=== PATIENT | female | born 1975 | race Caucasian/White ===

== ENCOUNTER 2018-10-24 16:15 | Emergency (ER) | payer MEDICAID ==
[~2018-10-24] VITALS: Ht 167.6 cm; Wt 81.6 kg
[~2018-10-24 16:15] MED LIST: ASPI-587 PO; ATEN25TA PO; ATEN50TA PO; CEFD300C16 PO; CPR500T PO; FRS325T PO; GLIP2.5T9 PO; GLMP2T PO; GLMP4T PO; HCT25T PO; HYDR-3455 PO; HYDR1TAB75 PO; IBP800T PO; INSU100V6 SQ; KETO10TA PO; LISI10TA2 PO; METF-380 PO; MULT-608 PO; NITR-65; OMG1KC PO; ONDA8TAB13 PO; ORPH100T PO; PREN1TAB39; SIMV40TA4 PO; SITA100T PO; SULF1TAB38 PO; VITA1CAP59 PO; VNL75T PO
--- NOTE | 2018-10-24 16:28 | ED Integumentary General ---
General Stated Complaint: BACK OF NECK POSS SPIDER BITE/ MRSA BOIL Source: patient Exam Limitations: no limitations History of Present Illness Date Seen by Provider: Oct 24, 2018 Time Seen by Provider: 16:27 Initial Comments To ER with reports of a nodule to the back of her neck. This is been there for about a week, daughter looked at it today and noticed a blackened area in the center, suspect it might be a spider bite or MRSA. She works at a senior care. No drainage, no nausea vomiting fevers chills or systemic symptoms. Timing/Duration: week Severity: moderate Associated Symptoms: denies symptoms Allergies and Home Medications Allergies Coded Allergies: No Known Drug Allergies (Unverified , 12/01/09) Home Medications Aspirin 81 Mg Tablet.dr, 81 MG PO DAILY, (Reported) Atenolol 50 Mg Tablet, 50 MG PO HS, (Reported) Cefdinir 300 Mg Capsule, 300 MG PO BID Prescribed by: PORSHA SALAS on 03/17/15141 Glimepiride 4 Mg Tab, 4 MG PO BID, (Reported) Hydrocodone/Acetaminophen 1 Each Tablet, 1 EACH PO Q4H Prescribed by: SHARONA MARTINEZ MD on 10/22/141630 Insulin Glargine,Hum.rec.anlog 100 Unit/1 Ml Vial, 18 UNIT SQ HS, (Reported) Ketorolac Tromethamine 10 Mg Tablet, 10 MG PO Q6H Prescribed by: SHARONA MARTINEZ MD on 10/22/141630 Lisinopril 10 Mg Tablet, 10 MG PO DAILY, (Reported) Metformin Hcl 1,000 Mg Tablet, 1,000 MG PO BID WITH MEALS, (Reported) Ondansetron 8 Mg Tab.rapdis, 8 MG PO Q6H PRN for NAUSEA Prescribed by: PORSHA SALAS on 03/17/15141 Orphenadrine Citrate 100 Mg Tablet.er, 100 MG PO Q12H Prescribed by: SHARONA MARTINEZ MD on 10/22/14 163 Simvastatin 40 Mg Tablet, 40 MG PO HS, (Reported) Sitagliptin Phosphate 100 Mg Tablet, 100 MG PO DAILY, (Reported) Venlafaxine Hcl 75 Mg Tab, 37.5 MG PO DAILY, (Reported) TAKE 1/2 OF (75MG) TAB IN MORNING Venlafaxine Hcl 75 Mg Tab, 75 MG PO HS, (Reported) Patient Home Medication List Home Medication List Reviewed: Yes Review of Systems Review of Systems Constitutional: see HPI EENTM: see HPI Respiratory: no symptoms reported Cardiovascular: no symptoms reported Genitourinary: no symptoms reported Musculoskeletal: no symptoms reported Skin: no symptoms reported Psychiatric/Neurological: No Symptoms Reported Endocrine: No Symptoms Reported Hematologic/Lymphatic: No Symptoms Reported Past Ugiidqq-Qguumg-Mufxzj Hx Patient Social History Recent Foreign Travel: No Contact w/Someone Who Travel: No Seasonal Allergies Seasonal Allergies: No Past Medical History Reproductive Disorders: No Family Medical History No Pertinent Family Hx Physical Exam Vital Signs Capillary Refill : General Appearance: WD/WN, no apparent distress HEENT: PERRL/EOMI, normal ENT inspection Respiratory: no respiratory distress, no accessory muscle use Neurologic/Psychiatric: alert, normal mood/affect, oriented x 3 Skin: normal color, warm/dry Skin Problem Character: abscess, other (2 cm area of induration and erythema to the back of the neck, midline. No fluctuance, no drainage, there is a 4 mm blackened eschar in the center.) Departure Impression Primary Impression: Abscess Disposition: 01 HOME, SELF-CARE Condition: Stable (ERASED) Departure-Patient Inst. Decision time for Depature: 16:29 Referrals: CHARLY FATIMA DO (PCP/Family) Primary Care Physician Patient Instructions: Skin Abscess Add. Discharge Instructions: 1. Warm compresses to the area 2. Apply the topical antibiotic twice daily for 1 week. Antibiotics twice daily for 1 week. Return to ER for any concerns such as fevers or other systemic symptoms. Follow-up with your doctor this week for recheck. Scripts Mupirocin (Mupirocin) 22 Gm Oint...g. 22 GM TP BID for 7 Days, #1 TUBE Prov: GEGE HARDING APRN 10/24/18 Sulfamethoxazole/Trimethoprim (Bactrim Ds Tablet) 1 Each Tablet 1 EACH PO BID, #14 TAB Prov: GEGE HARDING APRN 10/24/18 GEGE HARDING APRN Oct 24, 2018 16:28
[2018-10-24] MEDS ORDERED: SULF1TAB35 PO (16:30)
[2018-10-24] MEDS ORDERED: MUPI22OI2 TP (16:30)
[2018-10-24 16:44] VITALS: BP 138/87
== END 2018-10-24 16:44 | disposition home or self-care (01) ==
LOC: EDUNIT# 16:15 → ER 16:16
DX: L02.11 Cutaneous abscess of neck (principal); Z79.82 Long term (current) use of aspirin; Z79.84 Long term (current) use of oral hypoglycemic drugs
CPT/HCPCS: 99283

== ENCOUNTER 2018-10-30 20:13 | Emergency (ER) | payer MEDICAID ==
[~2018-10-30] VITALS: Ht 167.6 cm; Wt 77.1 kg
[~2018-10-30 20:13] MED LIST changes: +MUPI22OI2 TP; +SULF1TAB35 PO
--- NOTE | 2018-10-30 20:57 | ED Integumentary General ---
General Chief Complaint: Skin/Wound Problems Stated Complaint: WOUND ON NECK, NAUSEA Nursing Triage Note: Patient ambulatory to ER room 9 with family member with complaint of abscess to posterior neck. Patient states she was seen in ER on Thursday here by Gege Asher HAND STRIPER and placed on Bactrim DS and antibiotic ointment. Patient states today the pain has gotten worse to her abscess and she has had a small amount of drainage present from the abscess. Patient also complains of nausea today. Source: patient Exam Limitations: no limitations History of Present Illness Date Seen by Provider: Oct 30, 2018 Time Seen by Provider: 20:55 Initial Comments Persistent somewhat worsening abscess to the midline posterior neck. She was seen here a few days ago and placed on Bactrim antibiotic ointment. Timing/Duration: week, getting worse Severity: moderate Associated Symptoms: denies symptoms Allergies and Home Medications Allergies Coded Allergies: No Known Drug Allergies (Unverified , 12/01/09) Home Medications Aspirin 81 Mg Tablet.dr, 81 MG PO DAILY, (Reported) Atenolol 50 Mg Tablet, 50 MG PO HS, (Reported) Cefdinir 300 Mg Capsule, 300 MG PO BID Prescribed by: PORSHA SALAS on 03/17/15 0142 Glimepiride 4 Mg Tab, 4 MG PO BID, (Reported) Hydrocodone/Acetaminophen 1 Each Tablet, 1 EACH PO Q4H Prescribed by: SHARONA MARTINEZ MD on 10/22/14 1631 Insulin Glargine,Hum.rec.anlog 100 Unit/1 Ml Vial, 18 UNIT SQ HS, (Reported) Ketorolac Tromethamine 10 Mg Tablet, 10 MG PO Q6H Prescribed by: SHARONA MARTINEZ MD on 10/22/14 1631 Lisinopril 10 Mg Tablet, 10 MG PO DAILY, (Reported) Metformin Hcl 1,000 Mg Tablet, 1,000 MG PO BID WITH MEALS, (Reported) Mupirocin 22 Gm Oint...g., 22 GM TP BID Prescribed by: GEGE ASHER on 10/24/18 1630 Ondansetron 8 Mg Tab.rapdis, 8 MG PO Q6H PRN for NAUSEA Prescribed by: PORSHA SALAS on 03/17/15 014 Orphenadrine Citrate 100 Mg Tablet.er, 100 MG PO Q12H Prescribed by: SHARONA MARTIENZ MD on 10/22/14 1631 Simvastatin 40 Mg Tablet, 40 MG PO HS, (Reported) Sitagliptin Phosphate 100 Mg Tablet, 100 MG PO DAILY, (Reported) Sulfamethoxazole/Trimethoprim 1 Each Tablet, 1 EACH PO BID Prescribed by: GEGE ASHER on 10/24/18 1630 Venlafaxine Hcl 75 Mg Tab, 37.5 MG PO DAILY, (Reported) TAKE 1/2 OF (75MG) TAB IN MORNING Venlafaxine Hcl 75 Mg Tab, 75 MG PO HS, (Reported) Patient Home Medication List Home Medication List Reviewed: Yes Review of Systems Review of Systems Constitutional: see HPI EENTM: see HPI Respiratory: no symptoms reported Cardiovascular: no symptoms reported Genitourinary: no symptoms reported Musculoskeletal: no symptoms reported Skin: see HPI Psychiatric/Neurological: No Symptoms Reported Endocrine: No Symptoms Reported Past Hwglmfj-Earuds-Ttpmng Hx Patient Social History Alcohol Use: Denies Use Recreational Drug Use: No Smoking Status: Never a Smoker 2nd Hand Smoke Exposure: No Recent Foreign Travel: No Contact w/Someone Who Travel: No Recent Infectious Disease Expo: No Recent Hopitalizations: No (only previous childbirth) Physical Abuse: No Sexual Abuse: No Mistreated: No Fear: No Seasonal Allergies Seasonal Allergies: No Past Medical History Surgeries: Yes (D&C) Gallbladder Respiratory: No Cardiac: Yes High Cholesterol, Hypertension Neurological: No Reproductive Disorders: No Genitourinary: No Gastrointestinal: Yes Musculoskeletal: No Endocrine: Yes Diabetes, Insulin dep HEENT: No Cancer: No Psychosocial: Yes Integumentary: No Blood Disorders: No Family Medical History No Pertinent Family Hx Physical Exam Vital Signs Vital Signs - First Documented 10/30/18 20:15 Temp 97.3 Pulse 91 Resp 14 B/P (MAP) 128/95 (106) Pulse Ox 95 O2 Delivery Room Air Capillary Refill : Less Than 3 Seconds General Appearance: WD/WN, no apparent distress HEENT: PERRL/EOMI, normal ENT inspection, other (posterior midline neck is a 2 cm erythematous abscess with a central punctum/eschar. Minimal fluctuance. Superior to this there is some induration with normal-appearing overlying skin consistent with occipital lymphadenopathy.) Respiratory: no respiratory distress, no accessory muscle use Gastrointestinal: normal bowel sounds, non tender Extremities: normal range of motion, non-tender Neurologic/Psychiatric: alert, normal mood/affect, oriented x 3 Skin: normal color, warm/dry Skin Problem Character: abscess Procedures/Interventions I&D : Blade Size: 11 Progress Unable to expel any purulent material Progress/Results/Core Measures Results/Orders My Orders Orders - GEGE ASHER APRN Wound Culture (10/30/18 20:28) Sulfamethoxazole/Trimet Ds Tab (Bactrim (10/30/18 21:00) Vital Signs/I&O 10/30/18 20:15 Temp 97.3 Pulse 91 Resp 14 B/P (MAP) 128/95 (106) Pulse Ox 95 O2 Delivery Room Air Blood Pressure Mean: 106 Departure Impression Primary Impression: Abscess Disposition: 01 HOME, SELF-CARE Condition: Stable Departure-Patient Inst. Decision time for Depature: 20:56 Referrals: CHARLY BOWERS DO (PCP/Family) Primary Care Physician Patient Instructions: Abscess Incision and Drainage (DC) Add. Discharge Instructions: 1. Continue with the oral and topical antibiotics. Warm compresses to the area. Follow-up with Dr. Bowers next week. All discharge instructions reviewed with patient and/or family. Voiced understanding. GEGE ASHER APRN Oct 30, 2018 20:57
[2018-10-30 21:00] VITALS: BP 128/95
[2018-10-30] MEDS ORDERED: TRIM/SULFAMETH 160/800 (SEPTRA DS) TAB PO ONE (21:00)
== END 2018-10-30 21:07 | disposition home or self-care (01) ==
LOC: EDUNIT# 20:13 → ER 20:15
DX: L02.11 Cutaneous abscess of neck (principal); I10 Essential (primary) hypertension; E78.00 Pure hypercholesterolemia, unspecified; E11.9 Type 2 diabetes mellitus without complications; Z79.82 Long term (current) use of aspirin; Z79.84 Long term (current) use of oral hypoglycemic drugs; Z79.4 Long term (current) use of insulin
CPT/HCPCS: 87070; 87077; 87186; 87205; 99282

== ENCOUNTER 2019-01-17 20:07 | Emergency (ER) | payer SELFPAY ==
[~2019-01-17] VITALS: Ht 167.7 cm; Wt 77.0 kg
--- NOTE | 2019-01-17 20:44 | ED Headache ---
General Chief Complaint: Glucose Problems Stated Complaint: HIGH BLOOD SUGAR,MIGRAINE Source: patient, other Exam Limitations: no limitations History of Present Illness Date Seen by Provider: Jan 17, 2019 Time Seen by Provider: 20:29 Initial Comments Patient resists ER by private conveyance with her significant other and chief complaint of headache tonight. She equates this to her blood sugars being elevated. She does not have a history of headaches or migraines. She did not take anything for the headache. She says it is global and there is no photophobia or phonophobia. She has been off her insulin and medicines for the past 6 months. She's been 9 years dependent on insulin for type 2 diabetes. She has an appointment with Dr. Fatima tomorrow. She says she is off her medicines because she does not have insurance. She did talk with the pharmacist however and has some ideas for more affordable insulin. Allergies and Home Medications Allergies Coded Allergies: No Known Drug Allergies (Unverified , 12/01/09) Home Medications Aspirin 81 Mg Tablet.dr, 81 MG PO DAILY, (Reported) Atenolol 50 Mg Tablet, 50 MG PO HS, (Reported) Cefdinir 300 Mg Capsule, 300 MG PO BID Prescribed by: PORSHA SALAS on 03/17/15 014 Glimepiride 4 Mg Tab, 4 MG PO BID, (Reported) Hydrocodone/Acetaminophen 1 Each Tablet, 1 EACH PO Q4H Prescribed by: SHARONA MARTINEZ MD on 10/22/14 163 Insulin Glargine,Hum.rec.anlog 100 Unit/1 Ml Vial, 18 UNIT SQ HS, (Reported) Ketorolac Tromethamine 10 Mg Tablet, 10 MG PO Q6H Prescribed by: SHARONA MARTINEZ MD on 10/22/14 163 Lisinopril 10 Mg Tablet, 10 MG PO DAILY, (Reported) Metformin Hcl 1,000 Mg Tablet, 1,000 MG PO BID WITH MEALS, (Reported) Mupirocin 22 Gm Oint...g., 22 GM TP BID Prescribed by: GEGE HARDING on 10/24/18 1630 Ondansetron 8 Mg Tab.rapdis, 8 MG PO Q6H PRN for NAUSEA Prescribed by: PORSHA SALAS on 03/17/15 014 Orphenadrine Citrate 100 Mg Tablet.er, 100 MG PO Q12H Prescribed by: SHARONA MARTINEZ MD on 10/22/14 1631 Simvastatin 40 Mg Tablet, 40 MG PO HS, (Reported) Sitagliptin Phosphate 100 Mg Tablet, 100 MG PO DAILY, (Reported) Sulfamethoxazole/Trimethoprim 1 Each Tablet, 1 EACH PO BID Prescribed by: GEGE HARDING on 10/24/18 1630 Venlafaxine Hcl 75 Mg Tab, 37.5 MG PO DAILY, (Reported) TAKE 1/2 OF (75MG) TAB IN MORNING Venlafaxine Hcl 75 Mg Tab, 75 MG PO HS, (Reported) Patient Home Medication List Home Medication List Reviewed: Yes Review of Systems Review of Systems Constitutional: No chills, No diaphoresis Eyes: Denies Blindness, Denies Blurred Vision Ears, Nose, Mouth, Throat: denies ear pain, denies ear discharge Respiratory: No cough, No short of breath Cardiovascular: No chest pain, No palpitations Gastrointestinal: No abdominal pain, No nausea, No vomiting Genitourinary: No discharge, No dysuria : No Musculoskeletal: No back pain, No joint pain Skin: No pruritus, No rash All Other Systems Reviewed Negative Unless Noted: Yes Past Kgvfzdd-Kfpszz-Hipfgg Hx Patient Social History 2nd Hand Smoke Exposure: No Recent Foreign Travel: No Contact w/Someone Who Travel: No Recent Hopitalizations: No (only previous childbirth) Seasonal Allergies Seasonal Allergies: No Past Medical History Surgeries: Yes (D&C) Gallbladder Respiratory: No Cardiac: Yes High Cholesterol, Hypertension Neurological: No Reproductive Disorders: No Genitourinary: No Gastrointestinal: Yes Musculoskeletal: No Endocrine: Yes Diabetes, Insulin dep HEENT: No Cancer: No Psychosocial: Yes Integumentary: No Blood Disorders: No Family Medical History No Pertinent Family Hx Physical Exam Vital Signs Vital Signs - First Documented 01/17/19 20:27 Temp 37.0 Pulse 87 Resp 16 B/P (MAP) 147/93 (111) O2 Delivery Room Air Capillary Refill : Height, Weight, BMI Height: 5'6.00" Weight: 170lbs. oz. 77.992393lh; BMI Method:Stated General Appearance: WD/WN, no apparent distress HEENT: PERRL/EOMI, pharynx normal Neck: full range of motion, normal inspection Cardiovascular: normal peripheral pulses, regular rate, rhythm Respiratory: lungs clear, normal breath sounds, no respiratory distress, no accessory muscle use Gastrointestinal: normal bowel sounds, non tender, soft Extremities: non-tender, normal inspection, normal capillary refill Psychiatric: alert, oriented x 3 Crainal Nerves: normal hearing, normal speech, PERRL Skin: normal color, warm/dry Progress/Results/Core Measures Results/Orders Lab Results Laboratory Tests Test 01/17/19 20:30 01/17/19 20:40 01/17/19 20:45 01/17/19 21:24 Range/Units Urine Color YELLOW Urine Clarity CLEAR Urine pH 6.0 5-9 Urine Specific Stephen 1.010 L 1.016-1.022 Urine Protein NEGATIVE NEGATIVE Urine Glucose (UA) 3+ H NEGATIVE Urine Ketones NEGATIVE NEGATIVE Urine Nitrite NEGATIVE NEGATIVE Urine Bilirubin NEGATIVE NEGATIVE Urine Urobilinogen 0.2 < = 1.0 MG/DL Urine Leukocyte Esterase NEGATIVE NEGATIVE Urine RBC (Auto) NEGATIVE NEGATIVE Urine RBC NONE /HPF Urine WBC RARE /HPF Urine Squamous Epithelial Cells 2-5 /HPF Urine Crystals NONE /LPF Urine Bacteria TRACE /HPF Urine Casts NONE /LPF Urine Mucus NEGATIVE /LPF Urine Culture Indicated NO Urine Test NEGATIVE NEGATIVE Glucometer 404 *H 426 *H 70-110 MG/DL White Blood Count 8.3 4.3-11.0 10^3/uL Red Blood Count 5.67 4.35-5.85 10^6/uL Hemoglobin 16.2 H 11.5-16.0 G/DL Hematocrit 46 35-52 % Mean Corpuscular Volume 81 80-99 FL Mean Corpuscular Hemoglobin 29 25-34 PG Mean Corpuscular Hemoglobin Concent 35 32-36 G/DL Red Cell Distribution Width 12.4 10.0-14.5 % Platelet Count 221 130-400 10^3/uL Mean Platelet Volume 11.5 H 7.4-10.4 FL Neutrophils (%) (Auto) 51 42-75 % Lymphocytes (%) (Auto) 38 12-44 % Monocytes (%) (Auto) 9 0-12 % Eosinophils (%) (Auto) 2 0-10 % Basophils (%) (Auto) 0 0-10 % Neutrophils # (Auto) 4.3 1.8-7.8 X 10^3 Lymphocytes # (Auto) 3.2 1.0-4.0 X 10^3 Monocytes # (Auto) 0.7 0.0-1.0 X 10^3 Eosinophils # (Auto) 0.2 0.0-0.3 10^3/uL Basophils # (Auto) 0.0 0.0-0.1 10^3/uL Sodium Level 134 L 135-145 MMOL/L Potassium Level 4.7 3.6-5.0 MMOL/L Chloride Level 99 98-107 MMOL/L Carbon Dioxide Level 20 L 21-32 MMOL/L Anion Gap 15 H 5-14 MMOL/L Blood Urea Nitrogen 15 7-18 MG/DL Creatinine 1.13 0.60-1.30 MG/DL Estimat Glomerular Filtration Rate 53 BUN/Creatinine Ratio 13 Glucose Level 451 *H 70-105 MG/DL Calcium Level 9.5 8.5-10.1 MG/DL Corrected Calcium 9.3 8.5-10.1 MG/DL Total Bilirubin 0.2 0.1-1.0 MG/DL Aspartate Amino Transf (AST/SGOT) 14 5-34 U/L Alanine Aminotransferase (ALT/SGPT) 19 0-55 U/L Alkaline Phosphatase 110 40-136 U/L Total Protein 7.2 6.4-8.2 GM/DL Albumin 4.2 3.2-4.5 GM/DL My Orders Orders - ANNA CONNER Accucheck Stat ONCE (01/17/19 20:15) Ua Culture If Indicated (01/17/19 20:37) Cbc With Automated Diff (01/17/19 20:37) Comprehensive Metabolic Panel (01/17/19 20:37) Hcg,Qualitative Urine (01/17/19 20:37) Acetaminophen Tablet (Tylenol Tablet) (01/17/19 20:45) Insulin (Regular) Human (Humulin R (Per (01/17/19 20:45) Accucheck Stat ONCE (01/17/19 21:17) Medications Given in ED Current Medications Medications Dose Ordered Sig/Nicole Route Start Time Stop Time Status Last Admin Dose Admin Acetaminophen 1,000 mg ONCE ONCE PO 01/17/19 20:45 01/17/19 20:46 DC 01/17/19 20:48 1,000 MG Insulin Human Regular 15 unit ONCE ONCE SC 01/17/19 20:45 01/17/19 20:46 DC 01/17/19 20:49 15 UNIT Vital Signs/I&O 01/17/19 20:27 Temp 37.0 Pulse 87 Resp 16 B/P (MAP) 147/93 (111) O2 Delivery Room Air Progress Progress Note : Time: 21:40 Progress Note The patient's blood sugar did not significantly improve after the insulin however it is going down to about 25 mg/dL. She is not endorsing dysuria, frequency. She does not have ketonuria. A bag of fluids would have been advantageous but the patient was adamant about not having an IV in place unless it was absolutely necessary. Return to encourage her to continue her planned follow-up with Dr. Fatima tomorrow in the clinic. She was given Tylenol for her headache which was her chief concern. She typically takes 27 units of Lantus daily so we plan to give her 40 units of Levemir overnight. Departure Impression Primary Impression: Headache Qualified Codes: G44.209 - Tension-type headache, unspecified, not intractable Additional Impressions: Diabetes type 2, uncontrolled Qualified Codes: E11.65 - Type 2 diabetes mellitus with hyperglycemia Hyperglycemia Disposition: 01 HOME, SELF-CARE Condition: Stable Departure-Patient Inst. Decision time for Depature: 21:43 Referrals: CHARLY FATIMA DO (PCP/Family) Primary Care Physician Patient Instructions: Diabetes Type 2 (DC), Headache, Adult Add. Discharge Instructions: Keep your follow-up appointment with Dr. FATIMA tomorrow. If you feel cold clammy or have worsening symptoms then please check your blood sugar. 800 mg ibuprofen or 1-2 caplets of Aleve for headache. You can use Tylenol 1000 g every 8 hours as well. All discharge instructions reviewed with patient and/or family. Voiced understanding. ANNA CONNER Jan 17, 2019 20:44 POS
[2019-01-17] MEDS ORDERED: ACETAMINOPHEN 500 MG TAB (TYLENOL) PO ONE (20:45)
[2019-01-17] MEDS ORDERED: inSUlin (REGULAR) HUMAN 1 UNIT/0.01 ML (CHARGE PER UNIT) SC ONE (20:45)
[2019-01-17 20:47] LABS: BILIRUBIN,URINE NEGATIVE (NEGATIVE); CLARITY,URINE CLEAR; COLOR,URINE YELLOW; GLUCOSE, URINE (UA) 3+ (NEGATIVE); KETONES,URINE NEGATIVE (NEGATIVE); LEUKOCYTE ESTERASE ,URINE NEGATIVE (NEGATIVE); NITRITE,URINE NEGATIVE (NEGATIVE); PROTEIN,URINE NEGATIVE (NEGATIVE)
[2019-01-17 20:53] LABS: BASOPHILS % (AUTO) 0 % (0-10); EOSINOPHILS # (AUTO) 0.2 10^3/uL (0.0-0.3); EOSINOPHILS % (AUTO) 2 % (0-10); HEMATOCRIT 46 % (35-52); HEMOGLOBIN 16.2 G/DL (11.5-16.0); LYMPHOCYTES # (AUTO) 3.2 X 10^3 (1.0-4.0); LYMPHOCYTES % (AUTO) 38 % (12-44); MEAN CORPUSCULAR HEMOGLOBIN 29 PG (25-34); MEAN CORPUSCULAR HGB CONC 35 G/DL (32-36); MEAN CORPUSCULAR VOLUME 81 FL (80-99); MEAN PLATELET VOLUME 11.5 FL (7.4-10.4); MONOCYTES # (AUTO) 0.7 X 10^3 (0.0-1.0); MONOCYTES % (AUTO) 9 % (0-12); NEUTROPHILS # (AUTO) 4.3 X 10^3 (1.8-7.8); NEUTROPHILS % (AUTO) 51 % (42-75); PLATELET COUNT 221 10^3/uL (130-400); RED CELL DISTRIBUTION WIDTH 12.4 % (10.0-14.5); WHITE BLOOD COUNT 8.3 10^3/uL (4.3-11.0)
[2019-01-17 20:55] LABS: BACTERIA,URINE TRACE /HPF; WBC,URINE RARE /HPF
[2019-01-17 21:13] LABS: ALBUMIN 4.2 GM/DL (3.2-4.5); BILIRUBIN,TOTAL 0.2 MG/DL (0.1-1.0); CALCIUM 9.5 MG/DL (8.5-10.1); CREATININE SERUM 1.13 MG/DL (0.60-1.30); POTASSIUM 4.7 MMOL/L (3.6-5.0); TOTAL PROTEIN 7.2 GM/DL (6.4-8.2)
[2019-01-17 22:08] VITALS: BP 142/101
== END 2019-01-17 22:08 | disposition home or self-care (01) ==
LOC: EDUNIT# 20:07 → ER 20:08
DX: R51 Headache (principal); E11.65 Type 2 diabetes mellitus with hyperglycemia; I10 Essential (primary) hypertension; E78.00 Pure hypercholesterolemia, unspecified; Z79.82 Long term (current) use of aspirin; Z79.4 Long term (current) use of insulin
CPT/HCPCS: 36415; 80053; 81000; 82962; 84703; 85025; 96372